=== PATIENT | female | born 1995 | race Caucasian/White ===

== ENCOUNTER 2016-07-06 15:38 | Emergency (ER) | payer BC ==
[~2016-07-06] VITALS: Ht 170.2 cm; Wt 57.7 kg
[2016-07-06 15:44] VITALS: Ht 170.2 cm; Wt 57.7 kg
[2016-07-06] MEDS ORDERED: RABIES VACCINE (IMOVAX) HUMAN DIPL CELL 2.5 INTER.UNIT/ML SYR IM. ONE (16:45)
[2016-07-06 17:25] VITALS: BP 110/74; PULSE 72; TEMP 36.5; O2SAT 99
--- NOTE | 2016-07-06 21:37 | EMERGENCY ROOM VISIT NOTE ---
ED Visit Note First contact with patient: 16:20 Chief complaint: Rabies exposure HPI: This 20-year-old white female presents for evaluation of rabies exposure. She has a chicken coop and states there was a raccoon within the chicken coop. It did kill a chicken as well as damaged many eggs. Her mother scared it out of the chicken coop and later trapped the animal. It was dispatched by the [employer] and tested. Patient is believed to have had exposure to the saliva when cleaning up. They were notified that it was positive for rabies. This was 6 days ago. She was recommended to have vaccination and reports today for this. Her mother accompanies her today with the same exposure. Patient denies any symptoms. No other complaints. Review of systems: REVIEW OF SYSTEM: HEENT: No dizziness, visual problems, hearing loss, or tinnitus. There is no difficulty swallowing and no oral lesions are present. PULMONARY: No cough, shortness of breath, sputum production or hemoptysis. CARDIOVASCULAR: No chest pain, palpitations, shortness of breath or peripheral edema. GASTROINTESTINAL: No diarrhea, constipation, nausea, vomiting, or abdominal pain. GENITOURINARY: No dysuria, frequency, urgency or nocturia. NEUROLOGIC: No weakness, muscle tenderness, epilepsy or history of neurological problems. MUSCULOSKELETAL: No history of joint tenderness/swelling. No history of arthritis or arthralgias. SKIN: No rashes or lesions. PSYCHIATRIC: No history of depression or mental illness. ENDOCRINE: No history of diabetes, thyroid disorders, or abnormal hair growth. Surgical history: None Medical history: GERD Family history: Noncontributory. Current medications: Filed in patient's chart Allergies: Keflex Social history: Employed. No tobacco use. Vitals: Afebrile. Reviewed and filed in patient's chart General: Well-developed, well-nourished, young white female, in no acute distress. She is sitting on a bed. Alert and oriented. Skin:Warm and dry with good turgor. No rashes or lesions. No ecchymosis or erythema. The patient is not diaphoretic. No abrasions. Musculoskeletal: Full motion of the upper extremities without discomfort. Impression: Rabies exposure. Plan: Patient was educated regarding today's findings. Our pharmacy has run out of IG due to multiple first exposures yesterday and today. No additional medication is available till Friday. Her last day for the 7 day window for HRIG is tomorrow. I did call [facility] and they do have the immunoglobulin available. Perception was provided for the patient to receive administration there. They were given Imovax 1 ML IM here. Patient was monitored for 20 minutes. No adverse changes were noted. Patient was discharged with instructions to follow-up at the next scheduled injection. Tylenol as needed for any discomfort. Benadryl as needed for any itch. Return to the ER for any signs of allergic reaction. Current/Historical Medications Scheduled PRN Ranitidine Hcl (Zantac), 1 TAB PO UD PRN for Heartburn Allergies Coded Allergies: No Known Allergies (Unverified , 07/06/16) Vital Signs Date Time Temp Pulse Resp B/P Pulse Ox O2 Delivery O2 Flow Rate FiO2 07/06/16 17:25 36.5 72 18 110/74 99 07/06/16 17:13 72 18 110/74 99 Room Air 07/06/16 15:44 36.5 92 18 132/84 99 Room Air Medications Administered Medications (Trade) Dose Ordered Sig/Satya Route Start Time Stop Time Status Last Admin Dose Admin Rabies Vaccine Human Diploid Cell (Imovax Rabies) 2.5 interunit ONCE ONCE IM. 07/06/16 16:45 07/06/16 16:46 DC 07/06/16 17:06 2.5 INTERUNIT Departure Information Impression Primary Impression: Rabies exposure Dispostion Home / Self-Care Condition GOOD Forms WORK / SCHOOL INSTRUCTIONS, HOME CARE DOCUMENTATION FORM, MOTRIN USE, TYLENOL USE, IMPORTANT VISIT INFORMATION Patient Instructions My [facility], Rabies Immune Globulin Human Solution for injection Additional Instructions return on Jul 09, , and Jul 27, for Imovax injections. follow up with your PCP as needed. Tylenol and Motrin every 6 hours as needed for mild discomfort/soreness
== END 2016-07-06 17:26 | disposition home or self-care (01) ==
LOC: C.EDB 15:38 → C.EDD 17:26
DX: Z20.3 Contact with and (suspected) exposure to rabies (principal); K21.9 Gastro-esophageal reflux disease without esophagitis; Z79.899 Other long term (current) drug therapy

== ENCOUNTER 2016-07-09 11:53 | Emergency (ER) | payer BC ==
[~2016-07-09] VITALS: Ht 170.2 cm; Wt 57.9 kg
[2016-07-09 11:56] VITALS: BP 113/77; PULSE 86; TEMP 36.7; O2SAT 98; Ht 170.2 cm; Wt 57.9 kg
[2016-07-09] MEDS ORDERED: RABIES VACCINE (IMOVAX) HUMAN DIPL CELL 2.5 INTER.UNIT/ML SYR IM. ONE (12:30)
--- NOTE | 2016-07-09 12:37 | EMERGENCY ROOM VISIT NOTE ---
ED Visit Note First contact with patient: 12:07 Chief Complaint: Rabies Return Visit History of Present Illness: This patient is a 20-year-old female who presents to the Emergency Department ambulatory for their second Rabies Vaccination Injections. The patient reports that they had no reaction to previous injection. Patient denies the development of any fevers, chills, sweats, or URI symptoms. The patient states that she was not able to receive the immunoglobulin at this facility at her last visit, but she did go to the [facility] later that day and received the immunoglobulin. Medications: Unchanged from previous visit. Allergies: Known drug allergies PMH: Unchanged from previous visit. SHx: The patient lives locally with family. ROS: All pertinent positive and negative review of systems are appropriately documented in the History of Present Illness. Physical Exam: VITAL SIGNS - Vital signs and Nursing Notes were reviewed. GENERAL -this is a 20-year-old female, well-developed, well-nourished, and in no acute distress. SKIN - Without rashes or lesions. CARDIAC - RRR with normal S1 & S2. No murmurs, rubs, or gallops appreciated. RESPIRATORY - Clear to auscultation bilaterally. No wheezes, rales, or rhonchi appreciated. NEURO - Patient is A&Ox3 and communicates appropriately with the provider. ED Course: Previous ED visit note was reviewed by myself prior to patient evaluation. I did confirm that the patient had arrived on the appropriate day. Patient reports no reaction to the previous injection(s). Patient received 2.5 units of Imovax intramuscularly. Patient was observed in the Emergency Department for greater than 20 minutes prior to discharge without signs of reaction. Patient was educated on worrisome symptoms for return visit to the Emergency Department. Patient discharged to home with the intent for follow-up in the Emergency Department as scheduled for the remainder of their injections. Impression: Rabies Prophylaxis Discharge Instructions: You were seen in the Emergency Department today for your Rabies Prophylaxis Injection. You should continue to follow the Discharge Instructions outlined for you in your initial Emergency Department visit. For pain or fever control, you can use the following ihlw-shm-wkmmeho medicines (if >12 yo): - Regular strength (325mg/tab) Tylenol (acetaminophen) 2 tabs every 4-6 hours as needed. Do not exceed 12 tablets in a 24 hour period. Avoid taking more than 4 grams (4000 mg) of Tylenol per day. This includes any other sources of acetaminophen you may take on a regular basis. - Regular strength (200 mg/tab) Advil (ibuprofen) 1-2 tabs every 4-6 hours as needed. Do not exceed a dose of 3200 mg per day. Return to the emergency department if your symptoms worsen despite treatment course outlined above. Current/Historical Medications Scheduled PRN Ranitidine Hcl (Zantac), 1 TAB PO UD PRN for Heartburn Allergies Coded Allergies: No Known Allergies (Unverified , 07/09/16) Vital Signs Date Time Temp Pulse Resp B/P Pulse Ox O2 Delivery O2 Flow Rate FiO2 07/09/16 11:56 36.7 86 17 113/77 98 Room Air Medications Administered Medications (Trade) Dose Ordered Sig/Satya Route Start Time Stop Time Status Last Admin Dose Admin Rabies Vaccine Human Diploid Cell (Imovax Rabies) 2.5 interunit ONCE ONCE IM. 07/09/16 12:30 07/09/16 12:31 DC 07/09/16 12:29 2.5 INTERUNIT Departure Information Impression Primary Impression: Rabies, need for prophylactic vaccination against Dispostion Home / Self-Care Condition GOOD Referrals Clara Bacon D.O. (PCP) Patient Instructions My [facility] Additional Instructions You were seen in the Emergency Department today for your Rabies Prophylaxis Injection. You should continue to follow the Discharge Instructions outlined for you in your initial Emergency Department visit. For pain or fever control, you can use the following veuw-okk-fubsrao medicines (if >12 yo): - Regular strength (325mg/tab) Tylenol (acetaminophen) 2 tabs every 4-6 hours as needed. Do not exceed 12 tablets in a 24 hour period. Avoid taking more than 4 grams (4000 mg) of Tylenol per day. This includes any other sources of acetaminophen you may take on a regular basis. - Regular strength (200 mg/tab) Advil (ibuprofen) 1-2 tabs every 4-6 hours as needed. Do not exceed a dose of 3200 mg per day. Return to the emergency department if your symptoms worsen despite treatment course outlined above.
== END 2016-07-09 12:51 | disposition home or self-care (01) ==
LOC: C.EDB 11:54 → C.EDD 12:51
DX: Z20.3 Contact with and (suspected) exposure to rabies (principal)

== ENCOUNTER 2016-07-13 15:01 | Emergency (ER) | payer BC ==
[~2016-07-13] VITALS: Ht 170.2 cm; Wt 57.3 kg
[2016-07-13 15:04] VITALS: BP 113/71; PULSE 62; TEMP 36.5; O2SAT 100; Ht 170.2 cm; Wt 57.3 kg
--- NOTE | 2016-07-13 15:24 | EMERGENCY ROOM VISIT NOTE ---
ED Visit Note First contact with patient: 15:08 CHIEF COMPLAINT: Need third rabies vaccine HISTORY of present illness: This 20-year-old female presents the ER for her third rabies vaccine. The patient was exposed to a chicken who was killed by a rabid raccoon. The patient did not have any problems with prior vaccines REVIEW OF SYSTEMS: 6 system review was performed and was negative unless stated otherwise in history of present illness. PMH: The patient is healthy; GERD SOCIAL HISTORY: Patient denies any tobacco or alcohol use PHYSICAL EXAM: Vital Signs: Were reviewed Reviewed Nurse's notes. GEN.: 20-year -old white female appears in no acute distress. MENTAL STATUS: Alert and oriented 3. EMERGENCY DEPARTMENT COURSE: The patient was given Imovax the patient was discharged home in stable condition DIAGNOSIS: Post exposure rabies prophylaxis DISCHARGE INSTRUCTIONS: Return to ER in 7 days for final rabies vaccine Current/Historical Medications Scheduled PRN Ranitidine Hcl (Zantac), 1 TAB PO UD PRN for Heartburn Allergies Coded Allergies: No Known Allergies (Unverified , 07/09/16) Vital Signs Date Time Temp Pulse Resp B/P Pulse Ox O2 Delivery O2 Flow Rate FiO2 07/13/16 15:04 36.5 62 18 113/71 100 Room Air Departure Information Referrals Clara Bacon D.O. (PCP) Patient Instructions My [facility]
[2016-07-13] MEDS ORDERED: RABIES VACCINE (IMOVAX) HUMAN DIPL CELL 2.5 INTER.UNIT/ML SYR IM. ONE (15:30)
== END 2016-07-13 15:34 | disposition home or self-care (01) ==
LOC: C.EDB 15:02 → C.EDD 15:34
DX: Z23 Encounter for immunization (principal); Z20.3 Contact with and (suspected) exposure to rabies

== ENCOUNTER 2016-07-20 15:41 | Emergency (ER) | payer BC ==
[~2016-07-20] VITALS: Ht 170.2 cm; Wt 57.8 kg
[2016-07-20 15:44] VITALS: BP 118/79; PULSE 74; TEMP 36.5; O2SAT 94; Ht 170.2 cm; Wt 57.8 kg
[2016-07-20] MEDS ORDERED: RABIES VACCINE (IMOVAX) HUMAN DIPL CELL 2.5 INTER.UNIT/ML SYR IM. ONE (16:00)
--- NOTE | 2016-07-20 16:07 | EMERGENCY ROOM VISIT NOTE ---
ED Visit Note First contact with patient: 15:47 Chief Complaint: Rabies Return Visit History of Present Illness: This patient is a 20-year-old female who presents to the Emergency Department ambulatory for their fourth and final Rabies Vaccination Injections. The patient reports that they had no reaction to previous injection. Patient denies the development of any fevers, chills, sweats, or URI symptoms. Medications: Unchanged from previous visit. Allergies: No Known drug allergies PMH: Unchanged from previous visit. SHx: Patient lives locally with family. ROS: All pertinent positive and negative review of systems are appropriately documented in the History of Present Illness. Physical Exam: VITAL SIGNS - Vital signs and Nursing Notes were reviewed. GENERAL -this is a 20-year-old female, well-developed, well-nourished, and in no acute distress. SKIN - Without rashes or lesions. CARDIAC - RRR with normal S1 & S2. No murmurs, rubs, or gallops appreciated. RESPIRATORY - Clear to auscultation bilaterally. No wheezes, rales, or rhonchi appreciated. NEURO - Patient is A&Ox3 and communicates appropriately with the provider. ED Course: Previous ED visit note was reviewed by myself prior to patient evaluation. Patient reports no reaction to the previous injection(s). Patient received 2.5 units of Imovax intramuscularly. Patient was observed in the Emergency Department for greater than 20 minutes prior to discharge without signs of reaction. Patient was educated on worrisome symptoms for return visit to the Emergency Department. Patient discharged to home with the intent for follow-up in the Emergency Department as scheduled for the remainder of their injections. Impression: Rabies Prophylaxis Discharge Instructions: You were seen in the Emergency Department today for your final Rabies Prophylaxis Injection. For pain or fever control, you can use the following klef-sdk-edijymv medicines (if >12 yo): - Regular strength (325mg/tab) Tylenol (acetaminophen) 2 tabs every 4-6 hours as needed. Do not exceed 12 tablets in a 24 hour period. Avoid taking more than 4 grams (4000 mg) of Tylenol per day. This includes any other sources of acetaminophen you may take on a regular basis. - Regular strength (200 mg/tab) Advil (ibuprofen) 1-2 tabs every 4-6 hours as needed. Do not exceed a dose of 3200 mg per day. Return to the emergency department if your symptoms worsen despite treatment course outlined above. Current/Historical Medications Scheduled PRN Ranitidine Hcl (Zantac), 1 TAB PO UD PRN for Heartburn Allergies Coded Allergies: No Known Allergies (Unverified , 07/09/16) Vital Signs Date Time Temp Pulse Resp B/P Pulse Ox O2 Delivery O2 Flow Rate FiO2 07/20/16 15:44 36.5 74 18 118/79 94 Room Air Departure Information Impression Primary Impression: Rabies, need for prophylactic vaccination against Dispostion Home / Self-Care Condition GOOD Referrals Clara Bacon D.O. (PCP) Patient Instructions My [facility] Additional Instructions You were seen in the Emergency Department today for your final Rabies Prophylaxis Injection. For pain or fever control, you can use the following cvow-vgc-vuvsdih medicines (if >12 yo): - Regular strength (325mg/tab) Tylenol (acetaminophen) 2 tabs every 4-6 hours as needed. Do not exceed 12 tablets in a 24 hour period. Avoid taking more than 4 grams (4000 mg) of Tylenol per day. This includes any other sources of acetaminophen you may take on a regular basis. - Regular strength (200 mg/tab) Advil (ibuprofen) 1-2 tabs every 4-6 hours as needed. Do not exceed a dose of 3200 mg per day. Return to the emergency department if your symptoms worsen despite treatment course outlined above.
[2016-07-20] MEDS ORDERED: RANI150T3 PO (16:40)
== END 2016-07-20 16:20 | disposition home or self-care (01) ==
LOC: C.EDB 15:42 → C.EDD 16:20
DX: Z23 Encounter for immunization (principal); Z20.3 Contact with and (suspected) exposure to rabies